=== PATIENT | male | born 1990 | race Hispanic/Latino ===

== ENCOUNTER 2021-09-17 00:42 | Emergency (ER) | payer OTHER ==
[~2021-09-17] VITALS: Ht 165.1 cm; Wt 74.8 kg
[2021-09-17 00:47] VITALS: BP 147/82
[2021-09-17] MEDS ORDERED: ACETAMINOPHEN 500 MG TABLET ONE (01:50)
[2021-09-17] MEDS ORDERED: ACETAMINOPHEN 500 MG TABLET PO ONE (02:00)
== END 2021-09-17 02:42 | disposition home or self-care (01) ==
LOC: EDH 00:42
DX: S00.83XA Contusion of other part of head, initial encounter (principal); S13.8XXA Sprain of joints and ligaments of other parts of neck, initial encounter; Y04.0XXA Assault by unarmed brawl or fight, initial encounter; Y93.89 Activity, other specified; Y92.89 Other specified places as the place of occurrence of the external cause; Y99.8 Other external cause status
CPT/HCPCS: 70450; 72125